=== PATIENT | female | born 1965 | race Caucasian/White ===

== ENCOUNTER 2018-02-12 09:24 | Day surgery (SDC) | payer BC ==
--- NOTE | 2018-02-09 12:25 | EKG ---
Test Date: 2018-02-09 Test Time: 10:16:27 Clinical Data Management Director: MULUGETA MEASUREMENT RESULTS: Intervals: Rate: 61 UT: 148 QRSD: 82 QT: 408 QTc: 410 [place]: P: 38 UT: 148 QRS: 19 T: 63 INTERPRETIVE STATEMENTS: Normal sinus rhythm Normal ECG No previous ECG available for comparison Electronically Signed On 02-09-18 12:24:28 CDT by Warner Puckett
--- OUTSIDE RECORDS SUMMARY | 2018-02-12 09:56 | XMS REPORT | Clinical Summary ---
:1965 Author Organization [facility] Address [address] [place] [address] Care Team Providers Name Role Phone Maryam Kapoor Primary Care Provider Allergies Active Allergy Reactions Severity Noted Date Comments Codeine 11/10/2017 Penicillins 11/10/2017 Current Medications Prescription Sig. Disp. Refills Start Date End Date Status amLODIPine (NORVASC) 2.5 Take 2.5 mg by Active mg tablet mouth daily. thyroid, pork, (ARMOUR Take 30 mg by mouth Active THYROID) 30 mg tablet daily. montelukast (SINGULAIR) Take 10 mg by mouth Active 10 mg tablet nightly. cetirizine (ZyrTEC) 10 MG Take 10 mg by mouth Active tablet daily. fluticasone (FLONASE) 50 2 sprays by Each Active mcg/actuation nasal spray Nare route daily. Active Problems Problem Noted Date Acute medial meniscus tear of right knee 11/12/2017 Arthritis of right knee 11/10/2017 Internal derangement of right knee 11/10/2017 Sprain of medial meniscus of right knee 11/10/2017 Encounters Date Type Specialty Care Team Description 01/20/2018 Orders Only Orthopedic Surgery Heather Madrigal, Acute medial meniscus MA tear of right knee, initial encounter (Primary Dx) 12/07/2017 Office Visit Orthopedic Surgery Saundra Rubio, Acute medial meniscus MD tear of right knee, initial encounter (Primary Dx) 11/12/2017 Office Visit Orthopedic Surgery Saundra Rubio, Peripheral tear of MD medial meniscus of right knee as current injury, initial encounter (Primary Dx) 11/12/2017 Office Visit Orthopedic Surgery Dale Rangel MD Acute medial meniscus tear of right knee, initial encounter (Primary Dx) 11/10/2017 Office Visit Orthopedic Surgery Dale Rangel MD Pain and swelling of right knee (Primary Dx); Arthritis of right knee; Internal derangement of right knee; Sprain of medial meniscus of right knee, initial encounter 11/10/2017 Procedure Pass Radiology after 02/11/2017 Family History Medical History Relation Name Comments Cancer Father Cancer Maternal Grandfather Diabetes Maternal Grandmother Cancer Mother Diabetes Mother Cancer Paternal Grandfather Cancer Paternal Grandmother Cancer Sister Relation Name Status Comments Father Maternal Grandfather Maternal Grandmother Mother Paternal Grandfather Paternal Grandmother Sister Social History Tobacco Use Types Packs/Day Years Used Date Never Smoker Smokeless Tobacco: Never Used Alcohol Use Drinks/Week oz/Week Comments Yes 2 Glasses of wine 1.8 1 Shots of liquor Sex Assigned at Date Recorded Not on file Last Filed Vital Signs Not on file Plan of Treatment Date Type Specialty Care Team Description 02/24/2018 Office Visit Physical Therapy Saundra Rubio MD [address] [facility] [address] [place] [id number] [phone] Kan Monique, PT 03/04/2018 Office Visit Physical Therapy Saundra Rubio MD [address] [facility] [address] [place] [address] [phone] Kan Monique, PT 03/11/2018 Office Visit Physical Therapy Saundra Rubio, [address] [facility] [address] [place] [address] [phone] Kan Monique, PT Health Maintenance Due Date Last Done Comments CERVICAL CANCER SCREENING 02/28/1988 BREAST CANCER SCREENING 2017 COLON CANCER SCREENING 2017 SHINGRIX VACCINE (#1) 2017 INFLUENZA VACCINE 01/13/2018 Procedures Procedure Name Priority Date/Time Associated Diagnosis Comments MRI KNEE WO Routine 11/11/2017 4:25 PM Sprain of medial Results for this CONTRAST RIGHT CDT meniscus of right procedure are in knee, initial the results encounter section. XR KNEE 4+ VW RIGHT Routine 11/10/2017 2:58 PM Pain and swelling of Results for this CDT right knee procedure are in the results section. after 02/11/2017 Results MRI Knee Right Wo Contrast (11/11/2017 4:25 PM) Narrative Performed At EXAMINATION:MRI KNEE WO CONTRAST RIGHT [facility] CLINICAL HISTORY:S83.8X1A Sprain of other specified parts of right knee initial encounter, evalute meniscus TECHNIQUE:Multiplanar multisequence MR imaging of theright knee was performed without contrast. COMPARISON:November 10, 2017 x-ray FINDINGS: Cruciate ligaments: Intact. Menisci: Radial tear of the posterior horn root attachment of the medial meniscus with associated meniscal extrusion. No lateral meniscal tear. Collateral ligaments: Intact. Bone marrow: No focal abnormality. Articular cartilage: Focal full-thickness cartilage loss in the trochlea. Effusion: Moderate joint effusion Extensor mechanism: Intact. Soft tissues: No Junior's cyst or abnormal bursal collection. IMPRESSION: Radial tear of posterior horn root attachment of medial meniscus. Full- thickness cartilage loss and trochlea. Moderate joint effusion. [id number] Procedure Note [facility], Radiology Results [facility] - 11/11/2017 4:37 PM CDT EXAMINATION: MRI KNEE WO CONTRAST RIGHT CLINICAL HISTORY: S83.8X1A Sprain of other specified parts of right knee initial encounter, evalute meniscus TECHNIQUE: Multiplanar multisequence MR imaging of the right knee was performed without contrast. COMPARISON: November 10, 2017 x-ray FINDINGS: Cruciate ligaments: Intact. Menisci: Radial tear of the posterior horn root attachment of the medial meniscus with associated meniscal extrusion. No lateral meniscal tear. Collateral ligaments: Intact. Bone marrow: No focal abnormality. Articular cartilage: Focal full-thickness cartilage loss in the trochlea. Effusion: Moderate joint effusion Extensor mechanism: Intact. Soft tissues: No Junior's cyst or abnormal bursal collection. IMPRESSION: Radial tear of posterior horn root attachment of medial meniscus. Full- thickness cartilage loss and trochlea. Moderate joint effusion. [id number] Performing Organization Address City/State/Zipcode Phone Number [facility] [address] [place] [address] XR Knee 4+ Vw Right (11/10/2017 2:58 PM) Narrative Performed At [facility], lateral, oblique x-rays are done of the right knee.X-rays [facility] demonstrate moderate narrowing of the medial compartment of the right knee.There is no acute fracture, dislocation.There is a fabella present.There is mild arthritis along the patellofemoral joint. Performing Organization Address City/State/Zipcode Phone Number [facility] [address] [place] [address] after 02/11/2017 Insurance Payer Benefit Plan / Group Subscriber ID Type Phone Address [facility] TR[facility] QUIROZ xxxxxxxxxxxx PPO Home: [id number] [phone] [place], [place] [id number]
[2018-02-12] MEDS: OXYMETAZOLINE HCL 0.05% 30ML NAS ONE ×4 (10:06→11:21)
[2018-02-12] MEDS ORDERED: Ringers Lactate 1,000 ML IV ONE (10:16)
[2018-02-12] MEDS ORDERED: MIDAZOLAM HCL 2 MG/2 ML INJ ONE (10:48)
[2018-02-12] MEDS ORDERED: ROCURONIUM 50 MG/5 ML VIAL IV ONE (10:49)
[2018-02-12] MEDS ORDERED: PROPOFOL 200 MG/20 ML VIAL IV ONE (10:49)
[2018-02-12] MEDS ORDERED: FENTANYL CITR 100 MCG/2 ML ONE (10:50)
[2018-02-12] MEDS ORDERED: OFLOXACIN OTIC 0.3%-5 ML BTL ONE (10:54)
[2018-02-12] MEDS ORDERED: DEXAMETHASONE 10 MG/ML VIAL ONE (10:56)
[2018-02-12] MEDS ORDERED: LIDOCAINE 1% W/EPI 1:100,000 MDV 50 ML VIAL ONE (11:03)
[2018-02-12] MEDS ORDERED: METOCLOPRAMIDE 10 MG/2mL INJ ONE (11:06)
[2018-02-12] MEDS ORDERED: ONDANSETRON HCL 40 MG/20 ML VIAL ONE (11:06)
[2018-02-12] MEDS ORDERED: EPINEPHRINE/PF 1 MG/ML AMP ONE (11:42)
[2018-02-12] MEDS ORDERED: OXYMETAZOLINE HCL 0.05% 30ML NAS ONE (11:44)
--- NOTE | 2018-02-12 12:12 | P.BOP ---
Preoperative diagnosis: chronic ETD, right mastoid fluid, CHL Postoperative diagnosis: same Primary procedure: Bilateral Nasal endoscopy with ET dilation Secondary procedure: R myringotomy with typanostomy tube hairmasters manager: NONE,NONE Estimated blood loss: minimal Specimen: none Findings: severely edematous ET openings Anesthesia: General Complications: None Fluids & blood products: crystalloid 600ml Transferred to: Recovery Room Condition: Good
--- NOTE | 2018-02-12 23:03 | OP ---
Surgeon: Celine Tanner MD Preoperative Diagnoses: Chronic bilateral eustachian tube salpingitis, bilateral conductive hearing loss, retraction of tympanic membrane, right mastoid effusion. Postoperative Diagnoses: Chronic bilateral eustachian tube salpingitis, bilateral conductive hearing loss, retraction of tympanic membrane, right mastoid effusion. Procedures: Right myringotomy with tympanostomy tube placement and nasal endoscopy with bilateral eustachian tube dilation. Indication For Procedure: Magi Kunz is a 52-year-old with a history of chronic ear issues, multiple sets of tubes in the past, who presented and option of eustachian tube dilation was discussed. She underwent preoperative CT scan of the temporal bone demonstrating partial right mastoid effusion and recommendation was made for concurrent tube placement along with eustachian tube dilation. The risks, benefits, and alternatives to the procedure were discussed with the patient who agreed to proceed. Description Of Procedure: The patient was brought to the operating room. She was placed under general anesthesia via oral endotracheal tube. The operating microscope was used to examine the right ear. The tympanic membrane was significantly retracted, and there was a small amount of cerumen deep within the ear canal and adjacent to the eardrum. This was carefully loosened with a pick and removed with an alligator revealing a small amount of granulation tissue on the marginal aspect of the eardrum. This was partially removed and treated with epinephrine on a small piece of cotton to aid in hemostasis. A myringotomy incision was then made in the anterior-inferior quadrant, although the eardrum in this area was quite atrophic and floppy. A Paparella type 1 tube was then carefully placed across the incision and positioned with a pick. Ofloxacin drops were then instilled into the ear, and this portion of the procedure was concluded. The head of bed was turned 90 degrees, and the nasal cavity was examined using a 0-degree endoscope. There was mild edema of the bilateral middle turbinates, but no significant septal deviation. There was minimal adenoid tissue. The eustachian tube openings when viewed with a 30- degree endoscope were severely edematous and boggy in appearance. The entellus balloon dilation system was prepared for use in accordance with english drawer's instructions, and bent for appropriate angle for eustachian tube dilation. Under 30-degree endoscope visualization, the balloon was carefully advanced through the left nasal cavity and into the eustachian tube. The balloon was advanced over the guide and inflated. Inflation was held for 2 full minutes. The balloon was then deflated, and the device was carefully withdrawn. The nasopharynx was suctioned from the small amount of blood and a similar dilation was performed on the right side under endoscopic guidance using a 30-degree rigid scope. The balloon device was advanced into the nasal cavity and into the nasopharynx. The eustachian tube opening was well visualized, and the device was advanced hugging the curve anteriorly. The scope was passed without any resistance. The balloon was then inflated and held for 2 minutes. The device was then deflated and carefully removed. The nose was again suctioned. There was minimal blood, and the patient was returned to care of Anesthesia for awakening and extubation. Disposition: The patient will be discharged home later today and follow up with Dr. Tanner in 6 weeks for further evaluation. ARTI Voice ID: [id number] Report ID: [id number] [employer]
== END 2018-02-12 13:48 | disposition home or self-care (01) ==
LOC: OR 09:24
PROVIDERS: ATTEND Otolaryngology
PROC: 097F8ZZ Dilation of Right Eustachian Tube, Via Natural or Artificial Opening Endoscopic (ICD-10-PCS; 2018-02-12)
PROC: 099500Z Drainage of Right Middle Ear with Drainage Device, Open Approach (ICD-10-PCS; principal; 2018-02-12 11:30)
PROC: 097G8ZZ Dilation of Left Eustachian Tube, Via Natural or Artificial Opening Endoscopic (ICD-10-PCS; 2018-02-12 11:30)
DX: H68.023 Chronic Eustachian salpingitis, bilateral (principal); H90.0 Conductive hearing loss, bilateral; H73.893 Other specified disorders of tympanic membrane, bilateral; I10 Essential (primary) hypertension; Z88.8 Allergy status to other drugs, medicaments and biological substances; Z91.011 Allergy to milk products; Z88.5 Allergy status to narcotic agent; Z88.0 Allergy status to penicillin; E66.9 Obesity, unspecified; Z68.38 Body mass index [BMI] 38.0-38.9, adult
CPT/HCPCS: 93005; J0171; J1100; J2250; J2405; J2765; J3010